=== PATIENT | female | born 1975 | race Hispanic/Latino ===

== ENCOUNTER 2016-12-06 12:46 | Emergency (ER) | payer OTHER ==
[2016-12-06 12:56] VITALS: TEMP 98.1; O2SAT 100
--- NOTE | 2016-12-06 13:46 | C.PDOC ---
History Of Present Illness 41 y/o female presents to emergency department with complaint of increasing anxiety. Patient is the of a cardiac arrest patient seen in the ER today ( ). Patient reports history of anxiety and states she takes 1 mg Ativan PRN. Denies any other complaints. Time Seen by Provider: 12/06/16 12:49 Chief Complaint (Nursing): Anxiety History Per: Patient History/Exam Limitations: no limitations Onset/Duration Of Symptoms: Days Current Symptoms Are (Timing): Still Present Severity: Moderate Associated Symptoms: Anxiety. denies: Depression, Suicidal Thoughts, Suicidal Plan Past Medical History Reviewed: Historical Data, Nursing Documentation, Vital Signs Vital Signs: Last Vital Signs Temp 98.1 F 12/06/16 12:49 Pulse 125 H 12/06/16 14:06 Resp 20 12/06/16 14:06 BP 144/94 H 12/06/16 14:06 Pulse Ox 100 12/06/16 14:06 - Medical History PMH: Anxiety, Depression Family History: States: No Known Family Hx - Social History Hx Alcohol Use: No Hx Substance Use: No - Immunization History Hx Tetanus Toxoid Vaccination: No Hx Influenza Vaccination: No Hx Pneumococcal Vaccination: No Review Of Systems Except As Marked, All Systems Reviewed And Found Negative. Constitutional: Negative for: Fever, Chills Cardiovascular: Negative for: Chest Pain, Palpitations Respiratory: Negative for: Cough, Shortness of Breath, Wheezing Gastrointestinal: Negative for: Nausea, Vomiting, Abdominal Pain, Diarrhea Skin: Negative for: Rash Psych: Positive for: Anxiety. Negative for: Suicidal ideation, Withdrawal Physical Exam - Physical Exam Appears: Non-toxic, Other (anxious, tearful, crying) Skin: Normal Color, Warm, Dry Head: Normacephalic Oral Mucosa: Moist Cardiovascular: Rhythm Regular (mildly tachycardic), No Murmur Respiratory: Normal Breath Sounds, No Rales, No Rhonchi, No Wheezing Gastrointestinal/Abdominal: Normal Exam, Bowel Sounds, Soft, No Tenderness, No Guarding, No Rebound Back: Normal Inspection Extremity: Normal ROM Neurological/Psych: Oriented x3 Gait: Steady ED Course And Treatment O2 Sat by Pulse Oximetry: 100 (RA) Pulse Ox Interpretation: Normal Progress Note: Patient given PO Ativan. Reevaluation Time: 14:05 Reassessment Condition: Improved (Patient reassessed, states she is feeling more calm. Patient comfortable being discharged home at this time. She was instructed to follow up with PMD/clinic in 1-2 days, and she was given Rx for Ativan PRN. She understands she should return to ED if symptoms worsen.) Disposition Counseled Patient/Family Regarding: Diagnosis, Need For Followup - Disposition Referrals: [facility] [Outside] Disposition: HOME/ ROUTINE Disposition Time: 14:05 Condition: STABLE Additional Instructions: FOLLOW UP WITH YOUR DOCTOR/CLINIC IN 1-2 DAYS USE MEDICATION NEEDED RETURN TO ER IF YOU HAVE ANY CONCERNING SYMPTOMS Prescriptions: LORazepam [Ativan] 1 mg PO Q6 PRN #12 tab PRN Reason: Anxiety Instructions: Grief and Loss (ED), Anxiety (ED) Print Language: AUSTRIAN - Clinical Impression Clinical Impression: Grief reaction - Scribe Statement The provider has reviewed the documentation as recorded by the Scribjordana Dobson All medical record entries made by the Scribe were at my direction and personally dictated by me. I have reviewed the chart and agree that the record accurately reflects my personal performance of the history, physical exam, medical decision making, and the department course for this patient. I have also personally directed, reviewed, and agree with the discharge instructions and disposition.
[2016-12-06 14:06] VITALS: BP 144/94; PULSE 125; RESP 20
== END 2016-12-06 14:14 | disposition home or self-care (01) ==
LOC: C.ER 12:46
DX: F43.22 Adjustment disorder with anxiety (principal)